=== PATIENT | female | born 1995 | race Two or more races ===

== ENCOUNTER 2023-08-25 09:02 | Outpatient (OUT) | payer OTHER, SELFPAY ==
--- NOTE | 2023-08-25 | XR_ITS ---
The [address] [address] Patient Name: KEO JADE MRN: [id number] date: 1995 Sex: F Assigned Patient Location: CARD Current Patient Location: CARD Accession/Order Number: [id number] Exam Date: 08/25/2023 10:10 Report Date: 08/25/2023 10:41 At the request of: NON-STAFF PHYSICIAN Procedure: XR cervical spine 2-3V EXAMINATION: XR cervical spine 2-3V HISTORY: cervical spine arthritis COMPARISON: No relevant comparison available. FINDINGS: BONES: Normal. No significant spondylosis, scoliosis, fracture, or visible bony lesion. DISC SPACES: Normal. No significant disc height narrowing, subluxation, or endplate abnormality. PARASPINOUS: Negative. No paraspinous abnormality is seen. OTHER: Negative. XR/XR cervical spine 2-3V IMPRESSION: Normal examination. Electronically authenticated by: LORELEI QUEVEDO Date: 08/25/2023 10:41
--- NOTE | 2023-08-25 | XR_ITS ---
[address] [address] Patient Name: KEO JADE MRN: [id number] date: 1995 Sex: F Assigned Patient Location: CARD Current Patient Location: CARD Accession/Order Number: [id number] Exam Date: 08/25/2023 10:10 Report Date: 08/25/2023 10:36 At the request of: NON-STAFF PHYSICIAN Procedure: XR chest 2V EXAMINATION: XR chest 2V HISTORY: ischemic heart disease COMPARISON: No relevant comparison available. TECHNIQUE: PA and lateral FINDINGS: LUNGS: No significant pulmonary parenchymal abnormalities. VASCULATURE: No increased pulmonary vasculature. PLEURA: No pneumothorax, effusion, or pleural thickening. CARDIAC: No cardiomegaly or cardiac silhouette abnormality. MEDIASTINUM: No visible mass or adenopathy. BONES: No fracture or visible bone lesion. OTHER: Negative. XR/XR chest 2V IMPRESSION: Normal examination. Electronically authenticated by: LORELEI QUEVEDO Date: 08/25/2023 10:36
--- NOTE | 2023-08-25 09:00 | CA_ITS ---
Patient Name: KEO JADE MR#: [id number] : 1995 Exam Date: 08/25/2023 Ordering Doctor: Non-Staff Physician ECHOCARDIOGRAM REPORT PROCEDURE: CA ECHO DOPPLER COMPLETE INDICATIONS: Ischemic heart disease COMPARISON: None. DESCRIPTION: COMPLETE ECHOCARDIOGRAM Real-time transthoracic echocardiography with 2D, M-mode, spectral and color flow Doppler performed. QUALITY: Technical quality was good. LEFT VENTRICLE: Normal chamber size. Normal left ventricular wall thickness. Normal systolic function. LV EF: Normal left ventricular ejection fraction, (>55%). DIASTOLIC: Normal diastolic function. ATRIAL SEPTUM: Visually appears intact. LEFT ATRIUM: Normal chamber size. RIGHT ATRIUM: Normal chamber size. RIGHT VENTRICLE: Normal chamber size. Normal right ventricular systolic function. TRICUSPID VALVE: Normal mobility and thickness. No stenosis with trivial regurgitation. No evidence of pulmonary hypertension. RVSP 20 mmHg MITRAL VALVE: Normal mobility and thickness. No evidence of mitral valve stenosis. There is no mitral annular calcification. Mild mitral regurgitation. AORTIC VALVE: Normal trileaflet appearance. No visible sclerosis. Normal leaflet mobility. No evidence of aortic valve stenosis. No aortic regurgitation. AORTIC ROOT: Normal diameter and appearance. Ascending aorta is normal in size. PULMONIC VALVE: Normal thickness and mobility. No stenosis. Mild regurgitation. PERICARDIUM: No evidence of pericardial effusion. IVC: Collapses with inspirations. IVC is normal in size. PLEURA: CONCLUSION: 1. Normal ventricular size and systolic function. LVEF is estimated at 55 to 60%. 2. No significant valvular dysfunction. 3. Normal right-sided pressures. 4. No pericardial effusion. Adult Echocardiography Procedure Report Left Ventricle LVEDD (3.7 - 5.6 cm): 4.61 cm LVESD (2.2 - 4.0 cm): 3.57 cm LVIVS thickness (0.6 - 1.2 cm): 0.66 cm LVPW thickness (0.5 - 1.0 cm): 0.72 cm E - e': 4.45 LVOT Max Gradient: 3.35 mm[Hg] LVOT Area (cm2): 0.91 m/s Peak Velocity (LVOT): 0.91 m/s Mean Velocity (LVOT): 0.66 m/s LVOT Diameter 2.25 cm Left Atrium LA Volume Index (2D A2C): 34.04 ml/m2 Left Atrium Systolic Dimension: 3.10 cm Mitral Valve MV E to A Ratio: 1.77 Mitral Valve A-Wave Peak Velocity: 0.41 m/s Mitral Valve E-Wave Peak Velocity: 0.73 m/s Right Ventricle Aorta AO Root Diam: 2.99 cm Ascending Ao Diam: 2.42 cm Aortic Valve AoV Area (Peak Melchor): 3.48 cm2, 3.48 cm2 AoV Area (VTI): 3.71 cm2, 3.71 cm2 Peak Velocity(Antegrade Flow): 1.04 m/s Peak Gradient(Antegrade Flow): 4.34 mm[Hg] Mean Velocity(Antegrade Flow): 0.69 m/s Mean Gradient(Antegrade Flow): 2.23 mm[Hg] Velocity Time Integral: 24.20 cm Tricuspid Valve Peak Velocity (Regurgitant Flow): 2.08 m/s, 2.08 m/s Pulmonic Valve Peak Gradient: 3.16 mm[Hg], 3.41 mm[Hg] Right Atrium Right Atrium Systolic Pressure: 32.21 ml, 32.21 ml Dictated by: Messi Fonseca M.D. on 08/25/2023 at 17:56 Approved by: Messi Fonseca M.D. on 08/25/2023 at 17:58
== END 2023-08-25 09:03 | disposition home or self-care (01) ==
LOC: CARD 09:07
DX: I25.9 Chronic ischemic heart disease, unspecified (principal); M46.92 Unspecified inflammatory spondylopathy, cervical region
CPT/HCPCS: 71046; 72040; 93306; 96365